=== PATIENT | female | born 1975 | race Caucasian/White ===

== ENCOUNTER 2021-02-19 08:29 | Day surgery (SDC) | payer MEDICAID ==
[2021-02-16 15:22] LABS: BASOPHILS % (AUTO) 1 % (0-1); EOSINOPHILS % (AUTO) 2 % (1-7); LYMPHOCYTES % (AUTO) 43 % (22-44); MEAN CORPUSCULAR HEMOGLOBIN 29.6 pg (27.0-34.8); MEAN CORPUSCULAR HGB CONC 33.9 g/dL (32.4-35.8); MEAN PLATELET VOLUME 7.6 fL (7.4-10.4); MONOCYTES % (AUTO) 7 % (2-9); NEUTROPHILS % (AUTO) 48 % (42-75); PLATELET COUNT 352 x10^3/uL (130-400); RED BLOOD COUNT 4.69 x10^6/uL (3.82-5.3); RED CELL DISTRIBUTION WIDTH 14.3 % (9.6-15.2)
[2021-02-16 15:31] LABS: ALANINE AMINOTRANSFERASE 60 U/L (12-78); ALBUMIN 3.4 g/dL (3.4-5.0); ANION GAP 5 mmol/L (5-15); CALCIUM 8.7 mg/dL (8.5-10.1); CHLORIDE 109 mmol/L (98-107)
[2021-02-16 15:33] LABS: ALKALINE PHOSPHATASE 86 U/L (45-117); BILIRUBIN,TOTAL 0.6 mg/dL (0.2-1.0); CREATININE 0.62 mg/dL (0.55-1.02); TOTAL PROTEIN 8.1 g/dL (6.4-8.2)
[~2021-02-19] VITALS: Ht 165.1 cm; Wt 89.2 kg
[2021-02-19] MEDS ORDERED: SODIUM BICARBONATE 4.2%, 5ML ONE (09:30)
[2021-02-19] MEDS ORDERED: LIDOCAINE/MPF 2%-EPI 1:200K, 20 ML ONE (09:30)
[2021-02-19 09:40] VITALS: BP 120/85
[2021-02-19] MEDS ORDERED: DENIES (09:44)
[2021-02-19 09:51] LABS: HCG UR SG 1.015 (1.003-1.030)
[2021-02-19] MEDS ORDERED: LACTATED RINGERS 1,000 ML IV SCH (10:00)
[2021-02-19] MEDS ORDERED: CHLORHEXIDINE 15 ML UDC PO ONE (10:00)
[2021-02-19] MEDS ORDERED: FENTANYL PF 250 MCG/5ML ONE (10:22)
[2021-02-19] MEDS ORDERED: MIDAZOLAM 1 MG/ML, 2ML ONE (10:22)
[2021-02-19] MEDS ORDERED: METOCLOPRAMIDE 5 MG/ML, 2ML ONE (10:30)
[2021-02-19] MEDS ORDERED: ONDANSETRON 2MG/ML, 2ML ONE (10:30)
[2021-02-19] MEDS ORDERED: DEXAMETHASONE 4 MG/ML, 1ML ONE (10:30)
[2021-02-19] MEDS ORDERED: CEFAZOLIN 1,000 MG ONE (10:30)
[2021-02-19] MEDS ORDERED: PROPOFOL 50 ML ONE ×4 (10:35→14:20)
[2021-02-19] MEDS ORDERED: EPHEDRINE 50 MG/ML, 1ML IM PRN (13:00)
[2021-02-19] MEDS ORDERED: EPHEDRINE 50 MG/ML, 1ML IVPush PRN (13:00)
[2021-02-19] MEDS ORDERED: METHOCARBAMOL 1,000 MG in DEXTROSE 5% 100 ML IV PRN (13:00)
[2021-02-19] MEDS ORDERED: OXYcodone 5 MG/5 ML ORAL.SOL UDC PO PRN (13:00)
[2021-02-19] MEDS ORDERED: LORazepam 2 MG/ML, 1ML IVPush PRN (13:00)
[2021-02-19] MEDS ORDERED: PROMETHAZINE 25 MG/ML, 1ML IVPush PRN (13:00)
[2021-02-19] MEDS ORDERED: ONDANSETRON 2MG/ML, 2ML IVPush PRN (13:00)
[2021-02-19] MEDS ORDERED: HYDROmorphone 1 MG/ML, 1ML INJ IVPush PRN (13:00)
[2021-02-19] MEDS ORDERED: MEPERIDINE/PF 25MG/0.5ML IVPush PRN (13:00)
[2021-02-19] MEDS ORDERED: hydrALAzine 20 MG/ML, 1ML IV PRN (13:00)
[2021-02-19] MEDS ORDERED: HALOPERIDOL 5 MG/ML IV PRN (13:00)
[2021-02-19] MEDS ORDERED: LABETALOL 5MG/ML, 20ML IV PRN (13:00)
[2021-02-19] MEDS ORDERED: ACETAMINOPHEN 325 MG TABLET PO PRN (13:00)
[2021-02-19] MEDS: FENTANYL PF 100 MCG/2ML IV PRN ×4 (13:00→13:30)
[2021-02-19] MEDS ORDERED: ACETAMINOPHEN 650 MG/20.3 ML UDC ONE (13:02)
[2021-02-19] MEDS ORDERED: FENTANYL PF 100 MCG/2ML ONE (13:02)
[2021-02-19] MEDS ORDERED: OXYcodone 5 MG/5 ML ORAL.SOL UDC ONE (13:02)
== END 2021-02-19 15:15 | disposition home or self-care (01) ==
LOC: OUT 08:29
PROVIDERS: ATTEND Surgery
DX: I83.813 Varicose veins of bilateral lower extremities with pain (principal); I87.2 Venous insufficiency (chronic) (peripheral); E66.9 Obesity, unspecified; Z20.822 Contact with and (suspected) exposure to COVID-19; Z79.899 Other long term (current) drug therapy; Z83.3 Family history of diabetes mellitus; Z82.49 Family history of ischemic heart disease and other diseases of the circulatory system
CPT/HCPCS: 36415; 37700; 37766; 80053; 81025; 85025; J0690; J1100; J2250; J2405; J2704; J2765; J3010; J7120; U0003; U0005